=== PATIENT | female | born 1960 | race Caucasian/White ===

== ENCOUNTER 2023-11-14 13:59 | Outpatient (CLI) | payer OTHER, SELFPAY ==
--- NOTE | 2023-11-14 14:30 | MM_ITS ---
WS: [id number] BILATERAL 3D TOMOSYNTHESIS DIGITAL DIAGNOSTIC MAMMOGRAPHY WITH CAD CLINICAL INFORMATION: Hx abnormal mammogram, fibroma breast bx HISTORY: History of RIGHT breast benign biopsy fibroadenoma. Swollen glands RIGHT axilla with pain an d soreness. COMPARISON: None. TECHNIQUE: Bilateral CC, MLO, and ML views. FINDINGS: The breasts are composed of heterogeneous fibroglandular density, which can limit the detection of sm all underlying mass lesions. Biopsy clip RIGHT breast. Palpable marker RIGHT axilla with underlying l ymph nodes. Ultrasound is pending. LEFT breast is unremarkable. ULTRASOUND BREAST RIGHT TECHNIQUE: Ultrasound right breast focused area of concern. CLINICAL INFORMATION: Hx abnormal mammogram, fibroma breast bx FINDINGS: Ultrasound RIGHT axilla area of interest. 3 enlarged lymph nodes in the area of interest with an abno rmal appearance. Abnormal diffuse cortical thickening with replacement of fatty hilum. Recommend furt her evaluation with ultrasound-guided biopsy. Enlarged lymph nodes measure: 1. 2.0 x 1.2 x 2.6 cm 2. 2.0 x 1.1 x 1.1 cm 3. 1.8 x 0.7 x 1.2 cm IMPRESSION: MM/[place] [id number] BI-RADS: 4-Suspicious Finding-Biopsy Should Be Considered FOLLOW UP: US Guided Biopsy Recommended
--- NOTE | 2023-11-14 15:00 | US_ITS ---
WS: [id number] BILATERAL 3D TOMOSYNTHESIS DIGITAL DIAGNOSTIC MAMMOGRAPHY WITH CAD CLINICAL INFORMATION: Hx abnormal mammogram, fibroma breast bx HISTORY: History of RIGHT breast benign biopsy fibroadenoma. Swollen glands RIGHT axilla with pain an d soreness. COMPARISON: None. TECHNIQUE: Bilateral CC, MLO, and ML views. FINDINGS: The breasts are composed of heterogeneous fibroglandular density, which can limit the detection of sm all underlying mass lesions. Biopsy clip RIGHT breast. Palpable marker RIGHT axilla with underlying l ymph nodes. Ultrasound is pending. LEFT breast is unremarkable. ULTRASOUND BREAST RIGHT TECHNIQUE: Ultrasound right breast focused area of concern. CLINICAL INFORMATION: Hx abnormal mammogram, fibroma breast bx FINDINGS: Ultrasound RIGHT axilla area of interest. 3 enlarged lymph nodes in the area of interest with an abno rmal appearance. Abnormal diffuse cortical thickening with replacement of fatty hilum. Recommend furt her evaluation with ultrasound-guided biopsy. Enlarged lymph nodes measure: 1. 2.0 x 1.2 x 2.6 cm 2. 2.0 x 1.1 x 1.1 cm 3. 1.8 x 0.7 x 1.2 cm IMPRESSION: US/US breast RT limited* [id number] BI-RADS: 4-Suspicious Finding-Biopsy Should Be Considered FOLLOW UP: US Guided Biopsy Recommended
== END 2023-11-14 14:00 | disposition home or self-care (01) ==
LOC: RAD 14:00
PROVIDERS: PCP Family Medicine Adult Medicine; Visit Provider Family Medicine Adult Medicine
DX: R92.8 Other abnormal and inconclusive findings on diagnostic imaging of breast (principal); R59.0 Localized enlarged lymph nodes; M79.621 Pain in right upper arm; M79.89 Other specified soft tissue disorders; Z86.018 Personal history of other benign neoplasm; Z98.890 Other specified postprocedural states
CPT/HCPCS: 76642; 77062; G0279

== ENCOUNTER 2023-11-27 14:01 | Outpatient (CLI) | payer OTHER, SELFPAY ==
--- NOTE | 2023-11-27 14:45 | US_ITS ---
WS: [id number] ULTRASOUND GUIDED BIOPSY RIGHT AXILLARY LYMPH NODE. HISTORY: Enlarged RIGHT axillary lymph node. Procedure, risks, and complications are explained to the patient. Consent was obtained. Skin is clean sed with ChloraPrep and anesthetized with 1% buffered lidocaine. Comparison: Prior imaging studies are reviewed dated 11/14/2023. The enlarged lymph nodes are identified within the RIGHT axilla. There are several lymph nodes which are enlarged. Fatty hilum remains present. Very minimal asymmetry of the cortex. Biopsies are perform ed with an 18-gauge achieve needle. Multiple biopsies are obtained with no complications. Prior to the biopsy the patient was complaining of RIGHT breast pain. The pain localizes to the nippl e and along the inferior breast. There is a large area of erythema and the breast is hard and very pa inful. This is a new finding since her prior studies from 11/14/2023. Patient does indicate she is on antibiotics. We did image this area and there is a large amount of edema within the soft tissues and a large amount of shadowing. Increased vascularity and skin thickening. IMPRESSION: 1. Uncomplicated core biopsy of the enlarged RIGHT axillary lymph nodes. Pathology: Disrupted fragments of reactive appearing lymph node tissue. No necrosis or granulom atosis inflammation. No malignancy. Recommendation: See note below. Only one lymph node is sampled. This was the most concerning ly mph node. Note: I have explained to the patient and her the importance of further evaluation of the RIG HT breast to ensure the erythema improves. This may be focal mastitis due to its quick onset. Inflamm atory breast cancer may appear similar. I did discussed this with Dr. Malave also. If the erythema solorio s not improve punch biopsy of the skin should be obtained.
[2023-11-28 13:01] LABS: Lymphoma Profile (BBPL) See Report
== END 2023-11-27 14:02 | disposition home or self-care (01) ==
LOC: RAD 14:02
PROVIDERS: PCP Family Medicine Adult Medicine; Visit Provider Family Medicine Adult Medicine
DX: R59.0 Localized enlarged lymph nodes (principal); L53.9 Erythematous condition, unspecified; R92.8 Other abnormal and inconclusive findings on diagnostic imaging of breast
CPT/HCPCS: 38505; 76942; 88184; 88185; 88305; 88342

== ENCOUNTER → 2024-02-03 11:44 | Outpatient (BNVA) | payer OTHER, SELFPAY | PROVIDERS: PCP Family Medicine Adult Medicine; Referring Provider Family Medicine Adult Medicine; Visit Provider Specialist | DX: M17.11 Unilateral primary osteoarthritis, right knee; Z68.41 Body mass index [BMI] 40.0-44.9, adult | CPT/HCPCS: 73560; 73565 ==

== ENCOUNTER → 2024-02-04 09:52 | Outpatient (BNVA) | payer OTHER, SELFPAY | PROVIDERS: PCP Family Medicine Adult Medicine; Visit Provider Registered Nurse Neonatal Intensive Care | DX: N39.0 Urinary tract infection, site not specified (principal) | CPT/HCPCS: 81000; 87077; 87086; 87184 ==

== ENCOUNTER → 2024-02-13 13:48 | Outpatient (BNVA) | payer OTHER, SELFPAY | PROVIDERS: PCP Family Medicine Adult Medicine; Visit Provider Family Medicine Adult Medicine | DX: R39.9 Unspecified symptoms and signs involving the genitourinary system (principal) | CPT/HCPCS: 81000 ==

== ENCOUNTER 2024-02-24 12:03 | Outpatient (CLI) | payer OTHER, SELFPAY ==
--- NOTE | 2024-02-24 12:14 | XRR_ITS ---
PROCEDURE INFORMATION: Exam: XR Pelvis Exam date and time: 02/24/2024 12:20 PM Age: 63 years old Clinical indication: Hip pain and pelvic pain; Bilateral; Prior surgery; Surgery date: 6+ months; Surgery type: Bladder sling; Additional info: Back and hip pain, back and hip pain which May have followed her knee pain and changes in gait TECHNIQUE: Imaging protocol: Radiologic exam of the pelvis. Views: 1 or 2 view. COMPARISON: CR XR lumbar spine 2-3V* [id number] 02/24/2024 12:20 PM FINDINGS: Bones/joints: No acute fracture. Lower lumbar spine degenerative change. Soft tissues: Unremarkable. XR/XR pelvis 1-2V* [id number] IMPRESSION: No acute findings.
--- NOTE | 2024-02-24 12:14 | XRR_ITS ---
PROCEDURE INFORMATION: Exam: XR Lumbosacral Spine Exam date and time: 02/24/2024 12:20 PM Age: 63 years old Clinical indication: Low back pain; Prior surgery; Surgery date: 6+ months; Surgery type: Bladder sling; Additional info: Back and hip pain TECHNIQUE: Imaging protocol: Radiologic exam of the lumbosacral spine. Views: 2 or 3 views. COMPARISON: CR XR pelvis 1-2V* [id number] 02/24/2024 12:20 PM FINDINGS: Bones/joints: No acute fracture. Chronic fracture fragment versus interspinous/supraspinous ossification at the superior L4 spinous process. Trace retrolisthesis of L1 on L2 and L5 on S1, trace anterolisthesis of L3 on L4 and L4 on L5. Moderate intervertebral disc space narrowing at L5-S1 with associated osteophyte formation. Mild intervertebral disc space narrowing, osteophytosis and endplate sclerosis at L1-L2. Remaining intervertebral disc spaces show mild degenerative change. Multilevel facet arthrosis throughout the lumbar spine. Soft tissues: Unremarkable. XR/XR lumbar spine 2-3V* [id number] IMPRESSION: [id number] multilevel, multifactorial lumbar spine degenerative changes.
== END 2024-02-24 12:04 | disposition home or self-care (01) ==
LOC: RAD 12:04
PROVIDERS: PCP Family Medicine Adult Medicine; Visit Provider Family Medicine Adult Medicine
DX: M54.9 Dorsalgia, unspecified (principal); G89.29 Other chronic pain; M19.90 Unspecified osteoarthritis, unspecified site; M17.0 Bilateral primary osteoarthritis of knee; M51.36 Other intervertebral disc degeneration, lumbar region
CPT/HCPCS: 72100; 72170

== ENCOUNTER → 2024-03-19 13:20 | Outpatient (BNVA) | payer OTHER, SELFPAY | PROVIDERS: Visit Provider Nurse Practitioner | DX: R39.9 Unspecified symptoms and signs involving the genitourinary system (principal) | CPT/HCPCS: 81000; 87077; 87086; 87184 ==

== ENCOUNTER → 2024-05-25 14:45 | Outpatient (BNVA) | payer OTHER, SELFPAY | PROVIDERS: Visit Provider Registered Nurse Neonatal Intensive Care | DX: R39.9 Unspecified symptoms and signs involving the genitourinary system (principal) | CPT/HCPCS: 81000; 87086 ==

== ENCOUNTER → 2024-06-11 14:53 | Outpatient (BNVA) | payer OTHER, SELFPAY | PROVIDERS: PCP Family Medicine Adult Medicine; Visit Provider Nurse Practitioner | DX: R39.9 Unspecified symptoms and signs involving the genitourinary system (principal) | CPT/HCPCS: 81000 ==

== ENCOUNTER → 2024-07-03 12:04 | Outpatient (BNVA) | payer OTHER, SELFPAY | PROVIDERS: PCP Family Medicine Adult Medicine; Visit Provider Emergency Medicine | DX: R30.0 Dysuria (principal); R39.9 Unspecified symptoms and signs involving the genitourinary system | CPT/HCPCS: 81000; 87086 ==

== ENCOUNTER → 2024-10-19 10:04 | Outpatient (BNVA) | payer OTHER, SELFPAY | PROVIDERS: PCP Family Medicine Adult Medicine; Visit Provider Emergency Medicine | DX: N39.0 Urinary tract infection, site not specified (principal) | CPT/HCPCS: 81000; 87086 ==

== ENCOUNTER → 2024-11-10 11:01 | Outpatient (BNVA) | payer OTHER, SELFPAY | PROVIDERS: PCP Family Medicine Adult Medicine; Visit Provider Registered Nurse Neonatal Intensive Care | DX: R39.9 Unspecified symptoms and signs involving the genitourinary system (principal) | CPT/HCPCS: 81000; 87086 ==

== ENCOUNTER → 2025-03-01 10:03 | Outpatient (BNVA) | payer OTHER, SELFPAY | PROVIDERS: PCP Family Medicine | DX: R39.9 Unspecified symptoms and signs involving the genitourinary system (principal) | CPT/HCPCS: 81000; 87086 ==